=== PATIENT | male | born 1980 | race Caucasian/White ===

== ENCOUNTER 2022-05-15 00:52 | Emergency (ER) | payer BC, MEDICAID ==
[2022-05-15] MEDS ORDERED: cefTRIAXone 1 GM Vial IM STA (01:24)
[2022-05-15] MEDS ORDERED: Metoprolol Tartrate 50 MG Tab PO ONE (01:26)
[2022-05-15] MEDS ORDERED: traMADol 50 MG Tab PO STA (01:34)
[2022-05-15] MEDS ORDERED: cloNIDine 0.1 MG Tab PO ONE (01:36)
== END 2022-05-15 02:05 | disposition home or self-care (01) ==
LOC: FB.ED 00:52
DX: L03.116 Cellulitis of left lower limb (principal); I10 Essential (primary) hypertension; F17.210 Nicotine dependence, cigarettes, uncomplicated
CPT/HCPCS: 96372; 99283; A9270; J0696